=== PATIENT | male | born 1965 | race Caucasian/White ===

== ENCOUNTER 2023-05-21 09:46 | Emergency (ER) | payer OTHER, SELFPAY ==
[2023-05-21 09:48] VITALS: BP 114/75; BMI 39.5
--- NOTE | 2023-05-21 10:23 | ED.GENMED ---
History of Present Illness
General
Chief Complaint: Facial Problem
Source: patient and ambulance crew
Exam Limitations: none
Time Seen by Provider: 05/21/23 10:06
Nursing documentation reviewed up to this point in time: agreed with
Travel History
Have you had any contact with someone who has COVID-19?: No
Do you have any symptoms of coronavirus? Fever > 100 degrees, chills, cough, shortness of breath, sore throat, loss of taste or smell, muscle aches, or headache?: No
History of Present Illness
History of Present Illness:
57-year-old male, ex-smoker with history of HTN, HLD, MO and schizoaffective disorder. from [facility] assisted states that he checked his left upper incisor on ice 6 days ago and has an appointment with a dentist on 05/23. He had a virtual
visit with a nurse practitioner 5 days ago and is 1 day for a 5-day Z-Arjun.
It is reported that he had tongue and face swelling this a.m. so EMS was called for allergic reaction. They gave Benadryl 50 IM en route.
Pt tells me his left upper jaw has been bothering him past week, today awakened with significant swelling of the left side of his face from periorbital to lower jaw. Denies difficulty swallowing.
Denies fever/chills. Denies n/v. Denies SOB, CP, abdominal pain. History more consistent with dental abscess, no indication of allergic reaction on initial exam.
Past History
Past History
ED Past Medical History: HTN, Hypercholesterolemia, MO and Psychiatric (Schizoaffective disorder)
ED Past Surgical History: Other (oral surgery)
Review of Systems
Review of Systems
Allergies reviewed?: Yes
All Other Systems: ROS reviewed and negative except as documented in HPI and ROS
Constitutional: Denies fever or chills
EENT: Reports mouth swelling (Left upper jaw pain, left side face swollen); Denies sore throat
Respiratory: Denies trouble breathing
Cardiac: Denies chest pain
ABD/GI: Denies abdominal pain or nausea
Musculoskeletal: Denies neck pain
Skin: Reports no symptoms
Neurological: Reports no symptoms
Phy Exam
Physical Exam
Physical Exam:
GENERAL: No acute distress. A&Ox3.
CONSTITUTIONAL: Afebrile.
EYES: PERRL, conjunctivae normal, left periorbital area is puffy.
Neck: Supple
ENMT: moist mucus membranes, Pharynx nl, tongue normal. Left side of face moderately swollen. Tender upper left buccal-mucosal border with mild swelling of gum. No trismus. TMs normal.
RESPIRATORY: Regular respirations, nonlabored, lungs clear.
CARDIOVASCULAR: Regular rate and rhythm, no murmurs, no rubs.
GI: Soft, nontender, normal BS
MUSCULOSKELETAL: Moves with ease. Well perfused.
SKIN: Warm, dry, pink
PSYCH: Normal mood and affect. Well kept, interactive and appropriate
NEUROLOGIC: Awake, alert and oriented. No focal neurological deficits
Course
Orders/Labs/Results
Orders:
Orders
05/21/23 09:51
ECG [Electrocardiogram (*1)] Urgent
Reason for Study: Shortness of Breath
EKG- Treatment ONCE
05/21/23 10:07
Dexamethasone Sod Phosphate [Decadron] 10 mg IV NOW STA
05/21/23 10:21
CT Facial Bones W/ Iv Contrast Urgent
Comment:
Reason For Exam: concern for upper left dental abscess
05/21/23 10:28
Complete Blood Count/With Diff Urgent
Comprehensive Metabolic Panel Urgent
05/21/23 13:51
MetroNIDAZOLE [Flagyl] 500 mg PO NOW STA
Abnormal Lab Results
05/21/23
10:28
WBC 14.0 H 10^3/uL
(4.8-10.8)
RBC 3.87 L 10^6/uL
(4.70-6.10)
Hct 37.9 L %
(39.0-52.0)
MCV 97.9 H fL
(80.0-94.0)
MCH 34.9 H pg
(27.0-31.0)
Abs Immat Gran (auto) 0.2 H 10^3/uL
(0-0.05)
Absolute Neuts (auto) 9.8 H 10^3/uL
(1.4-6.5)
Absolute Monos (auto) 2.1 H 10^3/uL
(0.1-0.6)
Immature Gran % 1.2 H %
(0-0.5)
Lymphocytes % 13.3 L %
(20.5-51.1)
Monocytes % 14.8 H %
(1.7-9.3)
Sodium 133 L mmol/L
(135-145)
Glucose 144 H mg/dl
(70-99)
05/21/23 10:28
05/21/23 10:28
Vital Signs
Initial and Last Documented VS:
Initial Vital Signs
Temp Pulse Resp BP Pulse Ox
98.1 F 90 16 114/75 94
05/21/23 09:48 05/21/23 09:48 05/21/23 09:48 05/21/23 09:48 05/21/23 09:48
Last Documented Vital Signs
Temp Pulse Resp BP Pulse Ox
98.1 F 87 18 126/71 94
05/21/23 09:48 05/21/23 14:51 05/21/23 14:51 05/21/23 14:51 05/21/23 14:51
MDM/Problems Addressed
Differential Diagnosis Includes:
dental abscess, facial cellulitis
MDM/Problems Addressed:
57-year-old male, ex-smoker with history of HTN, HLD, MO and schizoaffective disorder. from [facility] assisted states that he checked his left upper incisor on ice 6 days ago and has an appointment with a dentist on 05/23. He had a virtual
visit with a nurse practitioner 5 days ago and is 1 day for a 5-day Z-Arjun.
It is reported that he had tongue and face swelling this a.m. so EMS was called for allergic reaction. They gave Benadryl 50 IM en route.
Pt tells me his left upper jaw has been bothering him past week, today awakened with significant swelling of the left side of his face from periorbital to lower jaw. Denies difficulty swallowing.
Denies fever/chills. Denies n/v. Denies SOB, CP, abdominal pain. History more consistent with dental abscess, no indication of allergic reaction on initial exam.
05/21/2023 1240 PM
CBC: WBC 14.0
CMP: No clinically significant abnormality
Facial bone CT: Radiology report read: IMPRESSION: Bilateral maxillary dental disease as above. Approximately 1.1 cm abscess immediately adjacent alveolar process of the left maxilla. Opacification of left-sided paranasal sinuses which may
represent odontogenic sinusitis.
Consulted Oral Surgeon Dr. Winston, copy of CT scan texted to her. She will see him in office 9:30 tomorrow A.M.
Spoke with staff Panfilo at [facility] stressed importance of making the appointment.
05/21/2023 1402 PM
Patient started on Flagyl. Out of bed and ambulating well, drinking well
Stable for discharge
To follow-up with oral surgeon tomorrow
*Critical Care Note
Total Time (30-74mins, 75-104mins- exclusive of procedures): Not Applicable
ED Attending Note
-
Portions of this chart may have been created with voice recognition software.� Occasional wrong word or��sound alike� substitutions may have occurred due to the inherent limitations of voice recognition software.
Discharge Plan
Departure
Patient Disposition: Home (Routine Discharge)
Date of Disposition: 05/21/23
Time of Disposition: 13:55
Patient with high blood pressure during this ER visit?: No
Condition: Fair
Discharge Problem:
Dental abscess
Instructions: Tooth Abscess (DC)
Prescriptions:
New
metronidazole 500 mg tablet
500 mg PO TID Qty: 20 0RF
Referrals:
Chloe Winston DDS [Active] - Tomorrow
Carlos Eduardo Zelaya, DO [Family Provider] -
Activity Restrictions/Additional Instructions:
As I discussed with Panfilo at [facility], you have an appointment with the oral surgeon tomorrow at 9:15 AM.
Take your last dose of azithromycin today
You had a dose of Flagyl here today
I sent a prescription to your pharmacy for the rest of the Flagyl. Take one at dinner time and one at bedtime tonight, then 3 times a day as ordered.
It is imperative that you follow-up with the oral surgeon tomorrow as you have several abnormalities on your CAT scan as well as the abscess.
Copy of CAT scan is sent with you.
Interventions
Interventions:
*Risk Screen - Suicide Last Done: 05/21/23 09:51
*General Assessment Last Done: 05/21/23 09:51
*Neglect/Abuse Screening Last Done: 05/21/23 09:51
ED- Fall Risk Assessment Last Done: 05/21/23 16:19
*ED COVID-19 Vaccine History Last Done: 05/21/23 14:52
*Nursing Disposition Last Done: 05/21/23 16:19
ED- Cardiac Assessment Last Done: 05/21/23 09:54
ED- Neurological Assessment Last Done: 05/21/23 09:54
ED- Pulmonary Assessment Last Done: 05/21/23 09:54
ED-Skin Assessment Last Done: 05/21/23 09:54
Discharge Date and Time
Discharge Date/Time: 05/21/23 16:20
[2023-05-21 10:43] LABS: % Basophils 0.5 % (0-2); % Eosinophils 0.3 % (0-6); % Immature Granulocytes 1.2 % (0-0.5); % Lymphocytes 13.3 % (20.5-51.1); % Monocytes 14.8 % (1.7-9.3); % Neutrophils 69.9 % (42.2-75.2); Absolute Basophils 0.1 10^3/uL (0-0.2); Absolute Immature Granulocytes 0.2 10^3/uL (0-0.05); Absolute Lymphocytes 1.9 10^3/uL (1.2-3.4); Absolute Monocytes 2.1 10^3/uL (0.1-0.6); Absolute Neutrophils 9.8 10^3/uL (1.4-6.5); Hematocrit 37.9 % (39.0-52.0); Hemoglobin 13.5 g/dL (13.0-18.0); Mean Corp Hgb Conc. 35.6 g/dL (33.0-37.0); Mean Corpuscular Hgb 34.9 pg (27.0-31.0); Mean Corpuscular Volume 97.9 fL (80.0-94.0); Mean Platelet Volume 9.9 fL (7.4-10.4); Nucleated Red Blood Cells % 0 % (-); Platelet Count 253 10^3/uL (130-400); Red Blood Cell Count 3.87 10^6/uL (4.70-6.10); Red Cell Dist. Width 12.8 % (11.5-14.5)
[2023-05-21 11:39] LABS: ALT (SGPT) 34 U/L (0-50); AST (SGOT) 27 U/L (17-59); Albumin 3.8 g/dl (3.5-5.0); Alkaline Phosphatase 105 U/L (38-126); Blood Urea Nitrogen 17 mg/dl (9-20); Calcium 9.2 mg/dl (8.4-10.2); Carbon Dioxide 27 mmol/L (22-30); Chloride 99 mmol/L (98-107); Estimated Creatinine Clearance > 125 ml/min; Glucose 144 mg/dl (70-99); Potassium 3.9 mmol/L (3.5-5.1); Sodium 133 mmol/L (135-145); Total Bilirubin 0.7 mg/dl (0.2-1.3); Total Protein 6.6 g/dl (6.3-8.2); eGFR > 60.00
[2023-05-21] MEDS: FLAGYL 500 MG PO (14:28)
[2023-05-21 14:51] VITALS: BP 126/71
== END 2023-05-21 16:20 | disposition home or self-care (01) ==
LOC: EMR 09:46
PROVIDERS: Registered Nurse; EMERGENCY PHYSICIAN Emergency Medicine; FAMILY PHYSICIAN Family Medicine
DX: K04.7 Periapical abscess without sinus (principal); I10 Essential (primary) hypertension; E78.00 Pure hypercholesterolemia, unspecified; Z87.891 Personal history of nicotine dependence; F25.9 Schizoaffective disorder, unspecified
CPT/HCPCS: 99285; 96374; 70487; 80053; 85025; 93005; Q9967